=== PATIENT | male | born 1935 | race Caucasian/White ===

== ENCOUNTER 2019-03-26 09:18 | Inpatient (IN) ==
[2019-03-26] MEDS ORDERED: MOM Conc 10 ML UD.LIQ PO PRN (14:09)
[2019-03-26] MEDS ORDERED: [UNRECOGNIZED DRUG - OTHER] IV SCH (14:15)
[2019-03-26] MEDS ORDERED: VANCOMYCIN HCL IV SCH (14:15)
[2019-03-26] MEDS ORDERED: DEXTROSE 5% IV SCH (14:15)
[2019-03-26] MEDS: Ascorbic Acid 500 MG TABLET PO SCH (17:45)
[2019-03-26] MEDS: *HR* OxyCODONE Immed Rel 5 MG TABLET PO PRN ×2 (17:46→21:48)
[2019-03-26] MEDS: Furosemide 20 MG TABLET PO SCH (17:46)
[2019-03-26] MEDS ORDERED: *HR* Warfarin 3 MG TABLET PO SCH (18:00)
[2019-03-26] MEDS: Lactulose Oral Soln 20 GM/30 ML UDC PO SCH (21:47)
[2019-03-26] MEDS: traZODone 50 MG TABLET PO SCH (21:48)
[2019-03-26] MEDS: Melatonin 3 MG TABLET PO SCH (21:48)
[2019-03-27 05:47] LABS: Basophils % 0.2 %; Eosinophils # 0.5 K/mcL (0.0-0.6); Eosinophils % 4.3 %; Hematocrit 24.3 % (37.5-50.1); Hemoglobin 7.6 g/dL (12.9-16.9); Immature Granulocytes % 0.5 % (0-4); Lymphocytes # 1.8 K/mcL (0.6-4.6); Mean Corpuscular HGB Conc 31.3 g/dL (31.6-35.5); Mean Corpuscular Volume 89.7 fL (83.0-100.0); Mean Platelet Volume 9.4 fL (9.4-12.4); Monocytes # 0.7 K/mcL (0.0-1.3); Platelet Count 270 K/mcL (140-400); Red Blood Count 2.71 M/mcL (4.19-5.50); Red Cell Distribution Width 17.8 % (11.5-14.5); White Blood Count 12.1 K/mcL (4.3-11.1)
[2019-03-27 06:00] LABS: INR 1.6
[2019-03-27 06:11] LABS: Alanine Aminotransferase 4 Units/L (7-52); Albumin 2.6 g/dL (3.5-5.7); Alkaline Phosphatase 86 Units/L (34-104); Aspartate Amino Transferase 9 Units/L (13-39); BUN/Creatinine Ratio 18 (6-26); Bilirubin,Total 0.4 mg/dL (0.3-1.0); Blood Urea Nitrogen 21 mg/dL (8-23); Calcium 8.1 mg/dL (8.6-10.3); Carbon Dioxide 28 mEq/L (23-29); Chloride 102 mEq/L (98-107); Globulin 2.5 g/dL (2.4-3.5); Glucose 105 mg/dL (70-105); Osmolality,Calculated 287 (280-300); Potassium 3.3 mEq/L (3.5-5.1); Sodium 137 mEq/L (136-145); Total Protein 5.1 g/dL (6.4-8.9); eGFR For African Americans > 60 (> 60); eGFR For Non-African Americans 60 (> 60)
[2019-03-27] MEDS: Aspirin Enteric Coated 81 MG Tablet PO SCH (10:06)
[2019-03-27] MEDS: Verapamil ER (24 HR) 240 MG TABLET.ER PO SCH (10:06)
[2019-03-27] MEDS: Multivit/Ca/Min/Fe/FA 1 TAB TABLET PO SCH (10:07)
[2019-03-27] MEDS: Isosorbide MONOnitrate (24 HR) 30 MG TAB.ER.24H PO SCH (10:07)
[2019-03-27] MEDS: Ascorbic Acid 500 MG TABLET PO SCH ×2 (10:07→17:23)
[2019-03-27] MEDS: FATTY ACIDS PO SCH (10:08)
[2019-03-27] MEDS: Lactulose Oral Soln 20 GM/30 ML UDC PO SCH ×2 (10:08→22:03)
[2019-03-27] MEDS: OMEGA PO SCH (10:08)
[2019-03-27] MEDS: FISH OIL PO SCH (10:08)
[2019-03-27] MEDS: Furosemide 20 MG TABLET PO SCH ×2 (10:13→17:23)
[2019-03-27] MEDS: *HR* OxyCODONE Immed Rel 5 MG TABLET PO PRN ×2 (10:27→22:05)
[2019-03-27 13:13] LABS: Bilirubin,Urine Negative (Negative); Blood,Urine Large (Negative); Clarity,Urine Slightly Cloudy (Clear); Color,Urine Yellow (Yellow); Glucose,Urine (UA) Normal (Normal); Ketones,Urine Negative (Negative); Leukocyte Esterase,Urine Small (Negative); Nitrite,Urine Negative (Negative); Protein,Urine 100 mg/dL (Neg-Trace); Specific Gravity,Urine >= 1.030 (1.010-1.025); Urobilinogen,Urine Normal (Normal)
[2019-03-27 13:19] LABS: RBC,Urine TNTC per hpf (0-3); Squamous Epithelial Cell,Urine Moderate per lpf (None-Few)
[2019-03-27 13:20] LABS: Bacteria,Urine Many per hpf (None-Few)
[2019-03-27] MEDS ORDERED: *HR* Warfarin 4 MG TABLET PO ONE (18:00)
[2019-03-27] MEDS ORDERED: Warfarin perPT PO PRN (18:00)
[2019-03-27] MEDS: traZODone 50 MG TABLET PO SCH (22:03)
[2019-03-27] MEDS: Melatonin 3 MG TABLET PO SCH (22:03)
[2019-03-28 05:49] LABS: INR 1.6
[2019-03-28] MEDS: Ascorbic Acid 500 MG TABLET PO SCH ×2 (09:37→16:43)
[2019-03-28] MEDS: Multivit/Ca/Min/Fe/FA 1 TAB TABLET PO SCH (09:37)
[2019-03-28] MEDS: Isosorbide MONOnitrate (24 HR) 30 MG TAB.ER.24H PO SCH (09:37)
[2019-03-28] MEDS: Furosemide 20 MG TABLET PO SCH ×2 (09:37→16:43)
[2019-03-28] MEDS: Aspirin Enteric Coated 81 MG Tablet PO SCH (09:38)
[2019-03-28] MEDS: Verapamil ER (24 HR) 240 MG TABLET.ER PO SCH (09:38)
[2019-03-28] MEDS: FATTY ACIDS PO SCH (09:41)
[2019-03-28] MEDS: FISH OIL PO SCH (09:41)
[2019-03-28] MEDS: OMEGA PO SCH (09:41)
[2019-03-28] MEDS: Lactulose Oral Soln 20 GM/30 ML UDC PO SCH (09:43)
[2019-03-28] MEDS ORDERED: Saliva Stimulant 100ml BOTTLE PO PRN (10:33)
[2019-03-28] MEDS ORDERED: Lactulose Oral Soln 20 GM/30 ML UDC PO PRN (10:36)
[2019-03-28] MEDS: *HR* OxyCODONE Immed Rel 5 MG TABLET PO PRN (16:43)
[2019-03-28] MEDS ORDERED: *HR* Warfarin 5 MG TABLET PO ONE (18:00)
[2019-03-28] MEDS ORDERED: *HR* Enoxaparin 100 MG/ML SYRINGE SQ SCH (18:00)
[2019-03-28] MEDS: Melatonin 3 MG TABLET PO SCH (21:22)
[2019-03-28] MEDS: traZODone 50 MG TABLET PO SCH (21:22)
[2019-03-29 06:36] LABS: Basophils % 0.3 %; Eosinophils # 0.4 K/mcL (0.0-0.6); Eosinophils % 3.8 %; Hematocrit 23.9 % (37.5-50.1); Hemoglobin 7.5 g/dL (12.9-16.9); Immature Granulocytes % 0.6 % (0-4); Lymphocytes # 1.3 K/mcL (0.6-4.6); Lymphocytes % 13.2 %; Mean Corpuscular HGB Conc 31.4 g/dL (31.6-35.5); Mean Corpuscular Hemoglobin 27.7 pg (28.0-33.3); Mean Corpuscular Volume 88.2 fL (83.0-100.0); Mean Platelet Volume 9.9 fL (9.4-12.4); Monocytes # 0.7 K/mcL (0.0-1.3); Monocytes % 6.9 %; Neutrophils # 7.6 K/mcL (1.6-8.9); Platelet Count 283 K/mcL (140-400); Red Blood Count 2.71 M/mcL (4.19-5.50); Red Cell Distribution Width 17.7 % (11.5-14.5); Segmented Neutrophils % 75.2 %; White Blood Count 10.1 K/mcL (4.3-11.1)
[2019-03-29 06:38] LABS: INR 1.8; Prothrombin Time 20.7 Seconds (9.4-12.1)
[2019-03-29 06:51] LABS: BUN/Creatinine Ratio 19 (6-26); Blood Urea Nitrogen 18 mg/dL (8-23); Carbon Dioxide 28 mEq/L (23-29); Chloride 104 mEq/L (98-107); Glucose 111 mg/dL (70-105); Osmolality,Calculated 287 (280-300); Potassium 3.2 mEq/L (3.5-5.1); Sodium 137 mEq/L (136-145); eGFR For African Americans > 60 (> 60); eGFR For Non-African Americans > 60 (> 60)
[2019-03-29] MEDS: Ascorbic Acid 500 MG TABLET PO SCH ×2 (09:54→18:15)
[2019-03-29] MEDS: Multivit/Ca/Min/Fe/FA 1 TAB TABLET PO SCH (09:54)
[2019-03-29] MEDS: Aspirin Enteric Coated 81 MG Tablet PO SCH (09:54)
[2019-03-29] MEDS: Verapamil ER (24 HR) 120 MG TABLET.ER PO SCH (09:54)
[2019-03-29] MEDS: Furosemide 20 MG TABLET PO SCH ×2 (09:55→18:15)
[2019-03-29] MEDS: Isosorbide MONOnitrate (24 HR) 30 MG TAB.ER.24H PO SCH (09:56)
[2019-03-29] MEDS: *HR* OxyCODONE Immed Rel 5 MG TABLET PO PRN ×2 (10:15→18:20)
[2019-03-29] MEDS: OMEGA PO SCH (10:19)
[2019-03-29] MEDS: FISH OIL PO SCH (10:19)
[2019-03-29] MEDS: FATTY ACIDS PO SCH (10:19)
[2019-03-29] MEDS ORDERED: *HR* Warfarin 4 MG TABLET PO ONE (18:00)
[2019-03-29] MEDS: traZODone 50 MG TABLET PO SCH (21:43)
[2019-03-29] MEDS: Melatonin 3 MG TABLET PO SCH (21:43)
[2019-03-30 05:06] LABS: Basophils % 0.4 %; Eosinophils # 0.3 K/mcL (0.0-0.6); Eosinophils % 2.9 %; Hematocrit 24.5 % (37.5-50.1); Hemoglobin 7.6 g/dL (12.9-16.9); Immature Granulocytes % 0.5 % (0-4); Lymphocytes # 1.6 K/mcL (0.6-4.6); Lymphocytes % 14.5 %; Mean Corpuscular Hemoglobin 27.7 pg (28.0-33.3); Mean Corpuscular Volume 89.4 fL (83.0-100.0); Monocytes # 0.8 K/mcL (0.0-1.3); Monocytes % 7.4 %; Neutrophils # 8.2 K/mcL (1.6-8.9); Platelet Count 310 K/mcL (140-400); Red Blood Count 2.74 M/mcL (4.19-5.50); Red Cell Distribution Width 17.7 % (11.5-14.5); Segmented Neutrophils % 74.3 %
[2019-03-30 05:13] LABS: Prothrombin Time 22.7 Seconds (9.4-12.1)
[2019-03-30 05:26] LABS: BUN/Creatinine Ratio 16 (6-26); Blood Urea Nitrogen 16 mg/dL (8-23); Calcium 8.1 mg/dL (8.6-10.3); Carbon Dioxide 27 mEq/L (23-29); Chloride 104 mEq/L (98-107); Glucose 109 mg/dL (70-105); Osmolality,Calculated 288 (280-300); Potassium 3.2 mEq/L (3.5-5.1); Sodium 138 mEq/L (136-145); eGFR For African Americans > 60 (> 60); eGFR For Non-African Americans > 60 (> 60)
[2019-03-30] MEDS: Aspirin Enteric Coated 81 MG Tablet PO SCH (08:53)
[2019-03-30] MEDS: Verapamil ER (24 HR) 120 MG TABLET.ER PO SCH (08:53)
[2019-03-30] MEDS: Furosemide 20 MG TABLET PO SCH ×2 (08:53→18:02)
[2019-03-30] MEDS: Isosorbide MONOnitrate (24 HR) 30 MG TAB.ER.24H PO SCH (08:53)
[2019-03-30] MEDS: Multivit/Ca/Min/Fe/FA 1 TAB TABLET PO SCH (08:53)
[2019-03-30] MEDS: Ascorbic Acid 500 MG TABLET PO SCH ×2 (08:54→18:01)
[2019-03-30] MEDS: *HR* OxyCODONE Immed Rel 5 MG TABLET PO PRN ×2 (08:54→18:01)
[2019-03-30] MEDS: FISH OIL PO SCH (11:51)
[2019-03-30] MEDS: OMEGA PO SCH (11:51)
[2019-03-30] MEDS: FATTY ACIDS PO SCH (11:51)
[2019-03-30] MEDS ORDERED: *HR* Warfarin 4 MG TABLET PO ONE (18:00)
[2019-03-30] MEDS: traZODone 50 MG TABLET PO SCH (21:33)
[2019-03-30] MEDS: Melatonin 3 MG TABLET PO SCH (21:33)
[2019-03-31 03:01] LABS: INR 1.9; Prothrombin Time 22.1 Seconds (9.4-12.1)
[2019-03-31] MEDS: Furosemide 20 MG TABLET PO SCH ×2 (09:03→18:18)
[2019-03-31] MEDS: Ascorbic Acid 500 MG TABLET PO SCH ×2 (09:03→18:18)
[2019-03-31] MEDS: Isosorbide MONOnitrate (24 HR) 30 MG TAB.ER.24H PO SCH (09:03)
[2019-03-31] MEDS: Multivit/Ca/Min/Fe/FA 1 TAB TABLET PO SCH (09:03)
[2019-03-31] MEDS: *HR* OxyCODONE Immed Rel 5 MG TABLET PO PRN ×2 (09:03→18:18)
[2019-03-31] MEDS: Aspirin Enteric Coated 81 MG Tablet PO SCH (09:03)
[2019-03-31] MEDS: Verapamil ER (24 HR) 120 MG TABLET.ER PO SCH (09:03)
[2019-03-31] MEDS: OMEGA PO SCH (09:04)
[2019-03-31] MEDS: FISH OIL PO SCH (09:04)
[2019-03-31] MEDS: FATTY ACIDS PO SCH (09:04)
[2019-03-31] MEDS ORDERED: *HR* Warfarin 5 MG TABLET PO ONE (18:00)
[2019-03-31] MEDS: Melatonin 3 MG TABLET PO SCH (19:50)
[2019-03-31] MEDS: traZODone 50 MG TABLET PO SCH (19:50)
[2019-04-01 05:53] LABS: Hematocrit 26.2 % (37.5-50.1); Hemoglobin 8.1 g/dL (12.9-16.9); Mean Corpuscular HGB Conc 30.9 g/dL (31.6-35.5); Mean Corpuscular Hemoglobin 27.5 pg (28.0-33.3); Mean Corpuscular Volume 88.8 fL (83.0-100.0); Mean Platelet Volume 9.7 fL (9.4-12.4); Platelet Count 324 K/mcL (140-400); Red Blood Count 2.95 M/mcL (4.19-5.50); Red Cell Distribution Width 17.5 % (11.5-14.5)
[2019-04-01 05:57] LABS: INR 2.2; Prothrombin Time 25.3 Seconds (9.4-12.1)
[2019-04-01 06:07] LABS: BUN/Creatinine Ratio 15 (6-26); Blood Urea Nitrogen 16 mg/dL (8-23); Calcium 8.3 mg/dL (8.6-10.3); Carbon Dioxide 29 mEq/L (23-29); Chloride 102 mEq/L (98-107); Glucose 100 mg/dL (70-105); Magnesium 1.9 mg/dL (1.6-2.6); Osmolality,Calculated 283 (280-300); Potassium 4.2 mEq/L (3.5-5.1); Sodium 136 mEq/L (136-145); eGFR For African Americans > 60 (> 60); eGFR For Non-African Americans > 60 (> 60)
[2019-04-01] MEDS: Verapamil ER (24 HR) 120 MG TABLET.ER PO SCH (08:53)
[2019-04-01] MEDS: Aspirin Enteric Coated 81 MG Tablet PO SCH (08:54)
[2019-04-01] MEDS: Isosorbide MONOnitrate (24 HR) 30 MG TAB.ER.24H PO SCH (08:54)
[2019-04-01] MEDS: Furosemide 20 MG TABLET PO SCH ×2 (08:54→17:57)
[2019-04-01] MEDS: Ascorbic Acid 500 MG TABLET PO SCH ×2 (08:54→17:57)
[2019-04-01] MEDS: OMEGA PO SCH (08:55)
[2019-04-01] MEDS: Multivit/Ca/Min/Fe/FA 1 TAB TABLET PO SCH (08:55)
[2019-04-01] MEDS: FISH OIL PO SCH (08:55)
[2019-04-01] MEDS: FATTY ACIDS PO SCH (08:55)
[2019-04-01] MEDS ORDERED: Furosemide 20 MG TABLET PO ONE (17:00)
[2019-04-01] MEDS ORDERED: *HR* Warfarin 5 MG TABLET PO ONE (18:00)
[2019-04-01] MEDS: *HR* OxyCODONE Immed Rel 5 MG TABLET PO PRN (18:33)
[2019-04-01] MEDS: traZODone 50 MG TABLET PO SCH (22:30)
[2019-04-01] MEDS: Melatonin 3 MG TABLET PO SCH (22:30)
[2019-04-02 05:40] LABS: INR 2.6; Prothrombin Time 29.3 Seconds (9.4-12.1)
[2019-04-02 05:50] LABS: eGFR For African Americans > 60 (> 60); eGFR For Non-African Americans 59 (> 60)
[2019-04-02] MEDS: *HR* OxyCODONE Immed Rel 5 MG TABLET PO PRN ×2 (06:32→17:00)
[2019-04-02] MEDS: Furosemide 20 MG TABLET PO SCH ×2 (08:43→17:01)
[2019-04-02] MEDS: Multivit/Ca/Min/Fe/FA 1 TAB TABLET PO SCH (08:43)
[2019-04-02] MEDS: Aspirin Enteric Coated 81 MG Tablet PO SCH (08:43)
[2019-04-02] MEDS: Verapamil ER (24 HR) 120 MG TABLET.ER PO SCH (08:43)
[2019-04-02] MEDS: FISH OIL PO SCH (08:44)
[2019-04-02] MEDS: OMEGA PO SCH (08:44)
[2019-04-02] MEDS: Isosorbide MONOnitrate (24 HR) 30 MG TAB.ER.24H PO SCH (08:44)
[2019-04-02] MEDS: Ascorbic Acid 500 MG TABLET PO SCH ×2 (08:44→17:01)
[2019-04-02] MEDS: FATTY ACIDS PO SCH (08:44)
[2019-04-02] MEDS: rifAMPin 150 MG CAPSULE PO SCH (17:00)
[2019-04-02] MEDS ORDERED: *HR* Warfarin 2.5 MG TABLET PO ONE (18:00)
[2019-04-02] MEDS: Melatonin 3 MG TABLET PO SCH (20:07)
[2019-04-02] MEDS: traZODone 50 MG TABLET PO SCH (20:08)
[2019-04-03 06:17] LABS: Basophils # 0.1 K/mcL (0.0-0.2); Basophils % 0.5 %; Eosinophils # 0.3 K/mcL (0.0-0.6); Eosinophils % 3.4 %; Hematocrit 26.8 % (37.5-50.1); Hemoglobin 8.4 g/dL (12.9-16.9); Immature Granulocytes % 0.5 % (0-4); Lymphocytes # 1.4 K/mcL (0.6-4.6); Lymphocytes % 14.8 %; Mean Corpuscular HGB Conc 31.3 g/dL (31.6-35.5); Mean Corpuscular Hemoglobin 27.5 pg (28.0-33.3); Mean Corpuscular Volume 87.9 fL (83.0-100.0); Mean Platelet Volume 9.6 fL (9.4-12.4); Monocytes # 0.6 K/mcL (0.0-1.3); Monocytes % 6.7 %; Neutrophils # 7.1 K/mcL (1.6-8.9); Platelet Count 341 K/mcL (140-400); Red Blood Count 3.05 M/mcL (4.19-5.50); Red Cell Distribution Width 17.4 % (11.5-14.5); Segmented Neutrophils % 74.1 %; White Blood Count 9.5 K/mcL (4.3-11.1)
[2019-04-03] MEDS: rifAMPin 150 MG CAPSULE PO SCH ×3 (06:23→17:52)
[2019-04-03] MEDS: Ondansetron ODT 4 MG TAB.RAPDIS SL PRN (06:23)
[2019-04-03] MEDS: *HR* OxyCODONE Immed Rel 5 MG TABLET PO PRN ×2 (06:23→11:50)
[2019-04-03 06:24] LABS: INR 2.8; Prothrombin Time 31.3 Seconds (9.4-12.1)
[2019-04-03 06:32] LABS: BUN/Creatinine Ratio 14 (6-26); Blood Urea Nitrogen 16 mg/dL (8-23); Calcium 8.2 mg/dL (8.6-10.3); Carbon Dioxide 28 mEq/L (23-29); Chloride 99 mEq/L (98-107); Glucose 107 mg/dL (70-105); Osmolality,Calculated 276 (280-300); Potassium 3.5 mEq/L (3.5-5.1); Sodium 132 mEq/L (136-145); eGFR For African Americans > 60 (> 60); eGFR For Non-African Americans > 60 (> 60)
[2019-04-03] MEDS: OMEGA PO SCH (08:22)
[2019-04-03] MEDS: FISH OIL PO SCH (08:22)
[2019-04-03] MEDS: FATTY ACIDS PO SCH (08:22)
[2019-04-03] MEDS: Verapamil ER (24 HR) 120 MG TABLET.ER PO SCH (08:27)
[2019-04-03] MEDS: Ascorbic Acid 500 MG TABLET PO SCH ×2 (08:28→18:03)
[2019-04-03] MEDS: Aspirin Enteric Coated 81 MG Tablet PO SCH (08:28)
[2019-04-03] MEDS: Furosemide 20 MG TABLET PO SCH ×2 (08:28→18:21)
[2019-04-03] MEDS: Isosorbide MONOnitrate (24 HR) 30 MG TAB.ER.24H PO SCH (08:28)
[2019-04-03] MEDS: Multivit/Ca/Min/Fe/FA 1 TAB TABLET PO SCH (08:28)
[2019-04-03 09:00] LABS: C-Reactive Protein 71 mg/L (Less than 10)
[2019-04-03] MEDS ORDERED: *HR* Warfarin 2.5 MG TABLET PO ONE (18:00)
[2019-04-03] MEDS: Melatonin 3 MG TABLET PO SCH (21:28)
[2019-04-03] MEDS: traZODone 50 MG TABLET PO SCH (21:28)
[2019-04-04] MEDS: *HR* OxyCODONE Immed Rel 5 MG TABLET PO PRN ×3 (00:34→15:05)
[2019-04-04 00:58] LABS: Bilirubin,Urine Small (Negative); Blood,Urine Large (Negative); Clarity,Urine Cloudy (Clear); Color,Urine Red (Yellow); Glucose,Urine (UA) Normal (Normal); Ketones,Urine Negative (Negative); Leukocyte Esterase,Urine Large (Negative); Nitrite,Urine Negative (Negative); Protein,Urine 100 mg/dL (Neg-Trace); Specific Gravity,Urine 1.015 (1.010-1.025); Urobilinogen,Urine Normal (Normal)
[2019-04-04 01:09] LABS: Bacteria,Urine Present per hpf (None-Few); RBC,Urine TNTC per hpf (0-3); WBC,Urine Present per hpf (0-3); Yeast,Urine Present per hpf (None Seen)
[2019-04-04 04:17] LABS: Hematocrit 27.6 % (37.5-50.1); Hemoglobin 8.6 g/dL (12.9-16.9); Mean Corpuscular HGB Conc 31.2 g/dL (31.6-35.5); Mean Corpuscular Hemoglobin 27.5 pg (28.0-33.3); Mean Corpuscular Volume 88.2 fL (83.0-100.0); Mean Platelet Volume 9.6 fL (9.4-12.4); Platelet Count 360 K/mcL (140-400); Red Blood Count 3.13 M/mcL (4.19-5.50); Red Cell Distribution Width 17.4 % (11.5-14.5); White Blood Count 9.4 K/mcL (4.3-11.1)
[2019-04-04 04:22] LABS: INR 2.9; Prothrombin Time 33.1 Seconds (9.4-12.1)
[2019-04-04 04:59] LABS: Alanine Aminotransferase 5 Units/L (7-52); Albumin 2.9 g/dL (3.5-5.7); Alkaline Phosphatase 106 Units/L (34-104); Aspartate Amino Transferase 11 Units/L (13-39); BUN/Creatinine Ratio 14 (6-26); Bilirubin,Total 0.6 mg/dL (0.3-1.0); Blood Urea Nitrogen 17 mg/dL (8-23); Calcium 8.3 mg/dL (8.6-10.3); Carbon Dioxide 28 mEq/L (23-29); Chloride 102 mEq/L (98-107); Glucose 106 mg/dL (70-105); Magnesium 1.8 mg/dL (1.6-2.6); Osmolality,Calculated 286 (280-300); Potassium 3.8 mEq/L (3.5-5.1); Sodium 137 mEq/L (136-145); Total Protein 5.9 g/dL (6.4-8.9); eGFR For African Americans > 60 (> 60); eGFR For Non-African Americans 57 (> 60)
[2019-04-04] MEDS: Verapamil ER (24 HR) 120 MG TABLET.ER PO SCH (07:49)
[2019-04-04] MEDS: Isosorbide MONOnitrate (24 HR) 30 MG TAB.ER.24H PO SCH (07:49)
[2019-04-04] MEDS: Ascorbic Acid 500 MG TABLET PO SCH ×2 (07:50→18:55)
[2019-04-04] MEDS: Multivit/Ca/Min/Fe/FA 1 TAB TABLET PO SCH (07:50)
[2019-04-04] MEDS: Furosemide 20 MG TABLET PO SCH ×2 (07:50→18:55)
[2019-04-04] MEDS: Aspirin Enteric Coated 81 MG Tablet PO SCH (07:51)
[2019-04-04] MEDS ORDERED: *HR* Warfarin 2.5 MG TABLET PO ONE (18:00)
[2019-04-04] MEDS: OMEGA PO SCH (18:53)
[2019-04-04] MEDS: FATTY ACIDS PO SCH (18:53)
[2019-04-04] MEDS: FISH OIL PO SCH (18:53)
[2019-04-04] MEDS: rifAMPin 150 MG CAPSULE PO SCH (18:55)
[2019-04-04] MEDS: Melatonin 3 MG TABLET PO SCH (21:31)
[2019-04-04] MEDS: traZODone 50 MG TABLET PO SCH (21:31)
[2019-04-05] MEDS: *HR* OxyCODONE Immed Rel 5 MG TABLET PO PRN ×3 (04:26→22:30)
[2019-04-05] MEDS: rifAMPin 150 MG CAPSULE PO SCH ×3 (04:26→17:08)
[2019-04-05 06:12] LABS: INR 2.5; Prothrombin Time 28.1 Seconds (9.4-12.1)
[2019-04-05 06:22] LABS: eGFR For African Americans > 60 (> 60); eGFR For Non-African Americans 57 (> 60)
[2019-04-05] MEDS: Multivit/Ca/Min/Fe/FA 1 TAB TABLET PO SCH (08:44)
[2019-04-05] MEDS: Furosemide 20 MG TABLET PO SCH ×2 (08:44→17:08)
[2019-04-05] MEDS: Verapamil ER (24 HR) 120 MG TABLET.ER PO SCH (08:44)
[2019-04-05] MEDS: Isosorbide MONOnitrate (24 HR) 30 MG TAB.ER.24H PO SCH (08:44)
[2019-04-05] MEDS: Aspirin Enteric Coated 81 MG Tablet PO SCH (08:45)
[2019-04-05] MEDS: Ascorbic Acid 500 MG TABLET PO SCH ×2 (08:45→17:08)
[2019-04-05] MEDS: OMEGA PO SCH (08:54)
[2019-04-05] MEDS: FISH OIL PO SCH (08:54)
[2019-04-05] MEDS: FATTY ACIDS PO SCH (08:54)
[2019-04-05] MEDS ORDERED: *HR* Warfarin 2.5 MG TABLET PO ONE (18:00)
[2019-04-05] MEDS: Melatonin 3 MG TABLET PO SCH (22:30)
[2019-04-05] MEDS: traZODone 50 MG TABLET PO SCH (22:30)
[2019-04-06 05:40] LABS: Basophils # 0.1 K/mcL (0.0-0.2); Basophils % 0.6 %; Eosinophils # 0.3 K/mcL (0.0-0.6); Eosinophils % 3.3 %; Hematocrit 26.2 % (37.5-50.1); Hemoglobin 8.2 g/dL (12.9-16.9); Immature Granulocytes % 0.4 % (0-4); Lymphocytes % 19.5 %; Mean Corpuscular HGB Conc 31.3 g/dL (31.6-35.5); Mean Corpuscular Volume 86.2 fL (83.0-100.0); Mean Platelet Volume 9.7 fL (9.4-12.4); Monocytes # 0.7 K/mcL (0.0-1.3); Monocytes % 7.2 %; Platelet Count 350 K/mcL (140-400); Red Blood Count 3.04 M/mcL (4.19-5.50); Red Cell Distribution Width 17.2 % (11.5-14.5); White Blood Count 10.1 K/mcL (4.3-11.1)
[2019-04-06 05:47] LABS: INR 2.1; Prothrombin Time 23.6 Seconds (9.4-12.1)
[2019-04-06 06:01] LABS: eGFR For African Americans > 60 (> 60); eGFR For Non-African Americans 56 (> 60)
[2019-04-06] MEDS: Verapamil ER (24 HR) 120 MG TABLET.ER PO SCH (07:58)
[2019-04-06] MEDS: Furosemide 20 MG TABLET PO SCH ×2 (07:59→17:07)
[2019-04-06] MEDS: *HR* OxyCODONE Immed Rel 5 MG TABLET PO PRN ×2 (07:59→23:30)
[2019-04-06] MEDS: Ascorbic Acid 500 MG TABLET PO SCH ×2 (08:00→17:07)
[2019-04-06] MEDS: Isosorbide MONOnitrate (24 HR) 30 MG TAB.ER.24H PO SCH (08:00)
[2019-04-06] MEDS: rifAMPin 150 MG CAPSULE PO SCH ×3 (08:00→17:06)
[2019-04-06] MEDS: Multivit/Ca/Min/Fe/FA 1 TAB TABLET PO SCH (08:00)
[2019-04-06] MEDS: Aspirin Enteric Coated 81 MG Tablet PO SCH (08:00)
[2019-04-06] MEDS: FATTY ACIDS PO SCH (08:01)
[2019-04-06] MEDS: OMEGA PO SCH (08:01)
[2019-04-06] MEDS: FISH OIL PO SCH (08:01)
[2019-04-06] MEDS ORDERED: *HR* Warfarin 5 MG TABLET PO ONE (18:00)
[2019-04-06] MEDS: Melatonin 3 MG TABLET PO SCH (21:15)
[2019-04-06] MEDS: traZODone 50 MG TABLET PO SCH (21:16)
[2019-04-07] MEDS: *HR* OxyCODONE Immed Rel 5 MG TABLET PO PRN ×2 (06:31→21:25)
[2019-04-07] MEDS: rifAMPin 150 MG CAPSULE PO SCH ×3 (06:31→18:15)
[2019-04-07 08:17] LABS: INR 1.9; Prothrombin Time 21.6 Seconds (9.4-12.1)
[2019-04-07 08:29] LABS: eGFR For African Americans > 60 (> 60); eGFR For Non-African Americans 57 (> 60)
[2019-04-07] MEDS: Multivit/Ca/Min/Fe/FA 1 TAB TABLET PO SCH (08:30)
[2019-04-07] MEDS: Furosemide 20 MG TABLET PO SCH ×2 (08:30→18:15)
[2019-04-07] MEDS: Verapamil ER (24 HR) 120 MG TABLET.ER PO SCH (08:30)
[2019-04-07] MEDS: Ascorbic Acid 500 MG TABLET PO SCH ×2 (08:30→18:15)
[2019-04-07] MEDS: Isosorbide MONOnitrate (24 HR) 30 MG TAB.ER.24H PO SCH (08:30)
[2019-04-07] MEDS: FATTY ACIDS PO SCH (08:31)
[2019-04-07] MEDS: Aspirin Enteric Coated 81 MG Tablet PO SCH (08:31)
[2019-04-07] MEDS: OMEGA PO SCH (08:31)
[2019-04-07] MEDS: FISH OIL PO SCH (08:31)
[2019-04-07] MEDS ORDERED: *HR* Warfarin 5 MG TABLET PO ONE (18:00)
[2019-04-07] MEDS: Fluconazole 100 MG TABLET PO SCH (18:16)
[2019-04-07] MEDS: Melatonin 3 MG TABLET PO SCH (21:25)
[2019-04-07] MEDS: traZODone 50 MG TABLET PO SCH (21:25)
[2019-04-08] MEDS: *HR* OxyCODONE Immed Rel 5 MG TABLET PO PRN ×3 (04:27→13:42)
[2019-04-08 05:26] LABS: INR 1.8
[2019-04-08 05:27] LABS: Basophils # 0.1 K/mcL (0.0-0.2); Basophils % 0.7 %; Eosinophils # 0.3 K/mcL (0.0-0.6); Eosinophils % 3.1 %; Hematocrit 29.2 % (37.5-50.1); Immature Granulocytes % 0.2 % (0-4); Lymphocytes % 22.2 %; Mean Corpuscular HGB Conc 30.8 g/dL (31.6-35.5); Mean Corpuscular Hemoglobin 26.8 pg (28.0-33.3); Mean Corpuscular Volume 86.9 fL (83.0-100.0); Mean Platelet Volume 9.9 fL (9.4-12.4); Monocytes # 0.7 K/mcL (0.0-1.3); Monocytes % 7.7 %; Neutrophils # 5.9 K/mcL (1.6-8.9); Platelet Count 377 K/mcL (140-400); Red Blood Count 3.36 M/mcL (4.19-5.50); Red Cell Distribution Width 17.1 % (11.5-14.5); Segmented Neutrophils % 66.1 %; White Blood Count 8.9 K/mcL (4.3-11.1)
[2019-04-08 05:37] LABS: BUN/Creatinine Ratio 14 (6-26); Blood Urea Nitrogen 17 mg/dL (8-23); Calcium 8.5 mg/dL (8.6-10.3); Carbon Dioxide 29 mEq/L (23-29); Chloride 100 mEq/L (98-107); Glucose 97 mg/dL (70-105); Osmolality,Calculated 283 (280-300); Potassium 3.6 mEq/L (3.5-5.1); Sodium 136 mEq/L (136-145); eGFR For African Americans > 60 (> 60); eGFR For Non-African Americans 56 (> 60)
[2019-04-08 05:52] LABS: Albumin/Globulin Ratio 0.9 (1.1-2.2); Bilirubin,Direct 0.3 mg/dL (0.0-0.2); Bilirubin,Indirect 0.3 mg/dL (0.0-1.0); Bilirubin,Total 0.6 mg/dL (0.3-1.0); Globulin 3.2 g/dL (2.4-3.5); Total Protein 6.2 g/dL (6.4-8.9)
[2019-04-08] MEDS: rifAMPin 150 MG CAPSULE PO SCH ×3 (06:57→17:07)
[2019-04-08 09:14] LABS: C-Reactive Protein 57 mg/L (Less than 10)
[2019-04-08] MEDS: Isosorbide MONOnitrate (24 HR) 30 MG TAB.ER.24H PO SCH (09:22)
[2019-04-08] MEDS: Verapamil ER (24 HR) 120 MG TABLET.ER PO SCH (09:22)
[2019-04-08] MEDS: Fluconazole 100 MG TABLET PO SCH (09:23)
[2019-04-08] MEDS: Multivit/Ca/Min/Fe/FA 1 TAB TABLET PO SCH (09:23)
[2019-04-08] MEDS: Furosemide 20 MG TABLET PO SCH ×2 (09:23→17:07)
[2019-04-08] MEDS: Ascorbic Acid 500 MG TABLET PO SCH ×2 (09:23→17:07)
[2019-04-08] MEDS: Aspirin Enteric Coated 81 MG Tablet PO SCH (09:23)
[2019-04-08] MEDS: FISH OIL PO SCH (09:24)
[2019-04-08] MEDS: OMEGA PO SCH (09:24)
[2019-04-08] MEDS: FATTY ACIDS PO SCH (09:24)
[2019-04-08] MEDS ORDERED: *HR* Warfarin 3 MG TABLET PO ONE (18:00)
[2019-04-08] MEDS: traZODone 50 MG TABLET PO SCH (22:02)
[2019-04-08] MEDS: Melatonin 3 MG TABLET PO SCH (22:02)
[2019-04-09 06:08] LABS: INR 2.1; Prothrombin Time 24.3 Seconds (9.4-12.1)
[2019-04-09] MEDS: Verapamil ER (24 HR) 120 MG TABLET.ER PO SCH (08:49)
[2019-04-09] MEDS: Ascorbic Acid 500 MG TABLET PO SCH ×2 (08:49→17:23)
[2019-04-09] MEDS: *HR* OxyCODONE Immed Rel 5 MG TABLET PO PRN (08:49)
[2019-04-09] MEDS: Multivit/Ca/Min/Fe/FA 1 TAB TABLET PO SCH (08:49)
[2019-04-09] MEDS: Aspirin Enteric Coated 81 MG Tablet PO SCH (08:49)
[2019-04-09] MEDS: rifAMPin 150 MG CAPSULE PO SCH ×3 (08:49→17:23)
[2019-04-09] MEDS: Fluconazole 100 MG TABLET PO SCH (08:49)
[2019-04-09] MEDS: Isosorbide MONOnitrate (24 HR) 30 MG TAB.ER.24H PO SCH (08:50)
[2019-04-09] MEDS: Furosemide 20 MG TABLET PO SCH ×2 (08:50→17:23)
[2019-04-09] MEDS: OMEGA PO SCH (08:50)
[2019-04-09] MEDS: FISH OIL PO SCH (08:50)
[2019-04-09] MEDS: FATTY ACIDS PO SCH (08:50)
[2019-04-09] MEDS ORDERED: *HR* Warfarin 5 MG TABLET PO ONE (18:00)
[2019-04-09] MEDS: Melatonin 3 MG TABLET PO SCH (19:46)
[2019-04-09] MEDS: traZODone 50 MG TABLET PO SCH (19:46)
[2019-04-10] MEDS: Isosorbide MONOnitrate (24 HR) 30 MG TAB.ER.24H PO SCH (05:53)
[2019-04-10] MEDS: Aspirin Enteric Coated 81 MG Tablet PO SCH (05:53)
[2019-04-10] MEDS: Ascorbic Acid 500 MG TABLET PO SCH ×2 (05:53→17:55)
[2019-04-10] MEDS: rifAMPin 150 MG CAPSULE PO SCH ×3 (05:53→14:41)
[2019-04-10] MEDS: Fluconazole 100 MG TABLET PO SCH (05:53)
[2019-04-10] MEDS: Verapamil ER (24 HR) 120 MG TABLET.ER PO SCH (05:53)
[2019-04-10] MEDS: Furosemide 20 MG TABLET PO SCH ×2 (05:53→17:55)
[2019-04-10] MEDS: FISH OIL PO SCH (05:54)
[2019-04-10] MEDS: Multivit/Ca/Min/Fe/FA 1 TAB TABLET PO SCH (05:54)
[2019-04-10] MEDS: FATTY ACIDS PO SCH (05:54)
[2019-04-10] MEDS: OMEGA PO SCH (05:54)
[2019-04-10 05:59] LABS: INR 2.2; Prothrombin Time 25.2 Seconds (9.4-12.1)
[2019-04-10 06:11] LABS: eGFR For African Americans > 60 (> 60); eGFR For Non-African Americans 56 (> 60)
[2019-04-10] MEDS: *HR* OxyCODONE Immed Rel 5 MG TABLET PO PRN ×2 (14:40→21:00)
[2019-04-10] MEDS ORDERED: *HR* Warfarin 5 MG TABLET PO ONE (18:00)
[2019-04-10] MEDS: traZODone 50 MG TABLET PO SCH (20:58)
[2019-04-10] MEDS: Melatonin 3 MG TABLET PO SCH (20:58)
[2019-04-11 05:50] LABS: INR 2.5; Prothrombin Time 28.2 Seconds (9.4-12.1)
[2019-04-11 06:01] LABS: eGFR For African Americans > 60 (> 60); eGFR For Non-African Americans 60 (> 60)
[2019-04-11] MEDS: Aspirin Enteric Coated 81 MG Tablet PO SCH (07:39)
[2019-04-11] MEDS: Fluconazole 100 MG TABLET PO SCH (07:40)
[2019-04-11] MEDS: rifAMPin 150 MG CAPSULE PO SCH ×3 (07:40→18:06)
[2019-04-11] MEDS: Isosorbide MONOnitrate (24 HR) 30 MG TAB.ER.24H PO SCH (07:40)
[2019-04-11] MEDS: Verapamil ER (24 HR) 120 MG TABLET.ER PO SCH (07:40)
[2019-04-11] MEDS: Multivit/Ca/Min/Fe/FA 1 TAB TABLET PO SCH (07:40)
[2019-04-11] MEDS: Furosemide 20 MG TABLET PO SCH ×2 (07:40→18:06)
[2019-04-11] MEDS: Ascorbic Acid 500 MG TABLET PO SCH ×2 (07:40→18:06)
[2019-04-11] MEDS: FATTY ACIDS PO SCH (10:04)
[2019-04-11] MEDS: FISH OIL PO SCH (10:04)
[2019-04-11] MEDS: OMEGA PO SCH (10:04)
[2019-04-11] MEDS: *HR* OxyCODONE Immed Rel 5 MG TABLET PO PRN ×2 (10:04→22:48)
[2019-04-11] MEDS ORDERED: *HR* Warfarin 4 MG TABLET PO ONE (18:00)
[2019-04-11] MEDS: Melatonin 3 MG TABLET PO SCH (22:46)
[2019-04-11] MEDS: traZODone 50 MG TABLET PO SCH (22:48)
[2019-04-12 06:02] LABS: INR 2.7; Prothrombin Time 30.5 Seconds (9.4-12.1)
[2019-04-12 06:12] LABS: eGFR For African Americans > 60 (> 60); eGFR For Non-African Americans 58 (> 60)
[2019-04-12] MEDS: Furosemide 20 MG TABLET PO SCH ×2 (09:37→17:37)
[2019-04-12] MEDS: Ascorbic Acid 500 MG TABLET PO SCH ×2 (09:37→17:37)
[2019-04-12] MEDS: Isosorbide MONOnitrate (24 HR) 30 MG TAB.ER.24H PO SCH (09:37)
[2019-04-12] MEDS: Fluconazole 100 MG TABLET PO SCH (09:37)
[2019-04-12] MEDS: Aspirin Enteric Coated 81 MG Tablet PO SCH (09:38)
[2019-04-12] MEDS: *HR* OxyCODONE Immed Rel 5 MG TABLET PO PRN ×2 (09:38→17:38)
[2019-04-12] MEDS: Multivit/Ca/Min/Fe/FA 1 TAB TABLET PO SCH (09:39)
[2019-04-12] MEDS: Verapamil ER (24 HR) 120 MG TABLET.ER PO SCH (09:39)
[2019-04-12] MEDS: rifAMPin 150 MG CAPSULE PO SCH ×3 (09:39→17:37)
[2019-04-12] MEDS: OMEGA PO SCH (09:40)
[2019-04-12] MEDS: FATTY ACIDS PO SCH (09:40)
[2019-04-12] MEDS: FISH OIL PO SCH (09:40)
[2019-04-12] MEDS ORDERED: *HR* Warfarin 2 MG TABLET PO ONE (18:00)
[2019-04-12] MEDS: Melatonin 3 MG TABLET PO SCH (20:17)
[2019-04-12] MEDS: traZODone 50 MG TABLET PO SCH (20:17)
[2019-04-13 05:50] LABS: INR 2.3; Prothrombin Time 25.8 Seconds (9.4-12.1)
[2019-04-13 05:57] LABS: Hematocrit 29.4 % (37.5-50.1); Hemoglobin 9.2 g/dL (12.9-16.9); Mean Corpuscular HGB Conc 31.3 g/dL (31.6-35.5); Mean Corpuscular Hemoglobin 27.1 pg (28.0-33.3); Mean Corpuscular Volume 86.5 fL (83.0-100.0); Mean Platelet Volume 10.4 fL (9.4-12.4); Platelet Count 347 K/mcL (140-400); Red Cell Distribution Width 17.4 % (11.5-14.5); White Blood Count 8.1 K/mcL (4.3-11.1)
[2019-04-13 06:12] LABS: Alanine Aminotransferase 6 Units/L (7-52); Albumin 3.1 g/dL (3.5-5.7); Alkaline Phosphatase 110 Units/L (34-104); Aspartate Amino Transferase 13 Units/L (13-39); BUN/Creatinine Ratio 17 (6-26); Bilirubin,Total 0.5 mg/dL (0.3-1.0); Blood Urea Nitrogen 20 mg/dL (8-23); Calcium 8.7 mg/dL (8.6-10.3); Carbon Dioxide 27 mEq/L (23-29); Chloride 101 mEq/L (98-107); Globulin 3.2 g/dL (2.4-3.5); Glucose 102 mg/dL (70-105); Magnesium 2.2 mg/dL (1.6-2.6); Osmolality,Calculated 283 (280-300); Potassium 3.9 mEq/L (3.5-5.1); Sodium 135 mEq/L (136-145); Total Protein 6.3 g/dL (6.4-8.9); eGFR For African Americans > 60 (> 60); eGFR For Non-African Americans 59 (> 60)
[2019-04-13] MEDS: Isosorbide MONOnitrate (24 HR) 30 MG TAB.ER.24H PO SCH (08:32)
[2019-04-13] MEDS: Aspirin Enteric Coated 81 MG Tablet PO SCH (08:32)
[2019-04-13] MEDS: Fluconazole 100 MG TABLET PO SCH (08:33)
[2019-04-13] MEDS: rifAMPin 150 MG CAPSULE PO SCH ×3 (08:33→17:25)
[2019-04-13] MEDS: Ascorbic Acid 500 MG TABLET PO SCH ×2 (08:33→17:25)
[2019-04-13] MEDS: Verapamil ER (24 HR) 120 MG TABLET.ER PO SCH (08:33)
[2019-04-13] MEDS: Furosemide 20 MG TABLET PO SCH ×2 (08:33→17:25)
[2019-04-13] MEDS: OMEGA PO SCH (08:34)
[2019-04-13] MEDS: Multivit/Ca/Min/Fe/FA 1 TAB TABLET PO SCH (08:34)
[2019-04-13] MEDS: FATTY ACIDS PO SCH (08:34)
[2019-04-13] MEDS: FISH OIL PO SCH (08:34)
[2019-04-13] MEDS: *HR* OxyCODONE Immed Rel 5 MG TABLET PO PRN ×2 (11:34→20:33)
[2019-04-13] MEDS ORDERED: *HR* Warfarin 4 MG TABLET PO ONE (18:00)
[2019-04-13] MEDS: traZODone 50 MG TABLET PO SCH (20:33)
[2019-04-13] MEDS: Melatonin 3 MG TABLET PO SCH (20:33)
[2019-04-14] MEDS: Isosorbide MONOnitrate (24 HR) 30 MG TAB.ER.24H PO SCH (09:18)
[2019-04-14] MEDS: rifAMPin 150 MG CAPSULE PO SCH ×3 (09:18→15:38)
[2019-04-14] MEDS: Verapamil ER (24 HR) 120 MG TABLET.ER PO SCH (09:18)
[2019-04-14] MEDS: Aspirin Enteric Coated 81 MG Tablet PO SCH (09:18)
[2019-04-14] MEDS: Ascorbic Acid 500 MG TABLET PO SCH ×2 (09:19→15:39)
[2019-04-14] MEDS: Fluconazole 100 MG TABLET PO SCH (09:19)
[2019-04-14] MEDS: Multivit/Ca/Min/Fe/FA 1 TAB TABLET PO SCH (09:19)
[2019-04-14] MEDS: Furosemide 20 MG TABLET PO SCH ×2 (09:19→15:38)
[2019-04-14] MEDS: FATTY ACIDS PO SCH (09:24)
[2019-04-14] MEDS: OMEGA PO SCH (09:24)
[2019-04-14] MEDS: FISH OIL PO SCH (09:24)
[2019-04-14 11:22] LABS: Prothrombin Time 22.7 Seconds (9.4-12.1)
[2019-04-14] MEDS: *HR* OxyCODONE Immed Rel 5 MG TABLET PO PRN ×2 (15:39→21:30)
[2019-04-14] MEDS ORDERED: *HR* Warfarin 3 MG TABLET PO ONE (18:00)
[2019-04-14] MEDS: traZODone 50 MG TABLET PO SCH (21:30)
[2019-04-14] MEDS: Melatonin 3 MG TABLET PO SCH (21:30)
[2019-04-14] MEDS: Ondansetron ODT 4 MG TAB.RAPDIS SL PRN (22:00)
[2019-04-15 05:35] LABS: Basophils # 0.1 K/mcL (0.0-0.2); Basophils % 0.8 %; Eosinophils # 0.4 K/mcL (0.0-0.6); Eosinophils % 4.3 %; Hematocrit 30.6 % (37.5-50.1); Hemoglobin 9.6 g/dL (12.9-16.9); Immature Granulocytes % 0.4 % (0-4); Lymphocytes # 1.8 K/mcL (0.6-4.6); Lymphocytes % 21.4 %; Mean Corpuscular HGB Conc 31.4 g/dL (31.6-35.5); Mean Platelet Volume 9.9 fL (9.4-12.4); Monocytes # 0.8 K/mcL (0.0-1.3); Monocytes % 9.3 %; Neutrophils # 5.4 K/mcL (1.6-8.9); Platelet Count 345 K/mcL (140-400); Red Blood Count 3.56 M/mcL (4.19-5.50); Red Cell Distribution Width 17.3 % (11.5-14.5); Segmented Neutrophils % 63.8 %; White Blood Count 8.4 K/mcL (4.3-11.1)
[2019-04-15 05:39] LABS: Prothrombin Time 22.2 Seconds (9.4-12.1)
[2019-04-15 05:50] LABS: BUN/Creatinine Ratio 17 (6-26); Blood Urea Nitrogen 22 mg/dL (8-23); Carbon Dioxide 27 mEq/L (23-29); Chloride 100 mEq/L (98-107); Glucose 102 mg/dL (70-105); Osmolality,Calculated 282 (280-300); Potassium 4.5 mEq/L (3.5-5.1); Sodium 134 mEq/L (136-145); eGFR For African Americans > 60 (> 60); eGFR For Non-African Americans 52 (> 60)
[2019-04-15 05:51] LABS: Albumin 3.3 g/dL (3.5-5.7); Bilirubin,Direct 0.2 mg/dL (0.0-0.2); Bilirubin,Indirect 0.2 mg/dL (0.0-1.0); Bilirubin,Total 0.4 mg/dL (0.3-1.0); Globulin 3.3 g/dL (2.4-3.5); Total Protein 6.6 g/dL (6.4-8.9)
[2019-04-15 09:01] LABS: C-Reactive Protein 53 mg/L (Less than 10)
[2019-04-15] MEDS: rifAMPin 150 MG CAPSULE PO SCH ×3 (09:34→17:37)
[2019-04-15] MEDS: Aspirin Enteric Coated 81 MG Tablet PO SCH (09:34)
[2019-04-15] MEDS: Verapamil ER (24 HR) 120 MG TABLET.ER PO SCH (09:34)
[2019-04-15] MEDS: Furosemide 20 MG TABLET PO SCH ×2 (09:35→17:37)
[2019-04-15] MEDS: *HR* OxyCODONE Immed Rel 5 MG TABLET PO PRN ×2 (09:35→21:43)
[2019-04-15] MEDS: Ascorbic Acid 500 MG TABLET PO SCH ×2 (09:35→17:37)
[2019-04-15] MEDS: OMEGA PO SCH (09:36)
[2019-04-15] MEDS: FATTY ACIDS PO SCH (09:36)
[2019-04-15] MEDS: Isosorbide MONOnitrate (24 HR) 30 MG TAB.ER.24H PO SCH (09:36)
[2019-04-15] MEDS: FISH OIL PO SCH (09:36)
[2019-04-15] MEDS: Multivit/Ca/Min/Fe/FA 1 TAB TABLET PO SCH (09:36)
[2019-04-15] MEDS ORDERED: *HR* Warfarin 5 MG TABLET PO ONE (18:00)
[2019-04-15] MEDS: traZODone 50 MG TABLET PO SCH (21:43)
[2019-04-15] MEDS: Melatonin 3 MG TABLET PO SCH (21:43)
[2019-04-16 05:48] LABS: Prothrombin Time 22.4 Seconds (9.4-12.1)
[2019-04-16] MEDS: Ascorbic Acid 500 MG TABLET PO SCH ×2 (08:01→16:11)
[2019-04-16] MEDS: Multivit/Ca/Min/Fe/FA 1 TAB TABLET PO SCH (08:01)
[2019-04-16] MEDS: Furosemide 20 MG TABLET PO SCH ×2 (08:02→16:11)
[2019-04-16] MEDS: FISH OIL PO SCH (08:02)
[2019-04-16] MEDS: Aspirin Enteric Coated 81 MG Tablet PO SCH (08:02)
[2019-04-16] MEDS: rifAMPin 150 MG CAPSULE PO SCH ×3 (08:02→16:11)
[2019-04-16] MEDS: OMEGA PO SCH (08:02)
[2019-04-16] MEDS: Verapamil ER (24 HR) 120 MG TABLET.ER PO SCH (08:02)
[2019-04-16] MEDS: FATTY ACIDS PO SCH (08:02)
[2019-04-16] MEDS: Isosorbide MONOnitrate (24 HR) 30 MG TAB.ER.24H PO SCH (08:02)
[2019-04-16] MEDS: *HR* OxyCODONE Immed Rel 5 MG TABLET PO PRN ×2 (10:47→22:36)
[2019-04-16] MEDS ORDERED: *HR* Warfarin 5 MG TABLET PO ONE (18:00)
[2019-04-16] MEDS: Melatonin 3 MG TABLET PO SCH (21:25)
[2019-04-16] MEDS: traZODone 50 MG TABLET PO SCH (21:26)
[2019-04-17] MEDS: rifAMPin 150 MG CAPSULE PO SCH ×3 (09:49→17:04)
[2019-04-17] MEDS: Verapamil ER (24 HR) 120 MG TABLET.ER PO SCH (09:49)
[2019-04-17] MEDS: FATTY ACIDS PO SCH (09:50)
[2019-04-17] MEDS: Isosorbide MONOnitrate (24 HR) 30 MG TAB.ER.24H PO SCH (09:50)
[2019-04-17] MEDS: Multivit/Ca/Min/Fe/FA 1 TAB TABLET PO SCH (09:50)
[2019-04-17] MEDS: FISH OIL PO SCH (09:50)
[2019-04-17] MEDS: OMEGA PO SCH (09:50)
[2019-04-17] MEDS: Furosemide 20 MG TABLET PO SCH ×2 (09:50→17:04)
[2019-04-17] MEDS: Ascorbic Acid 500 MG TABLET PO SCH ×2 (09:51→17:04)
[2019-04-17] MEDS: *HR* OxyCODONE Immed Rel 5 MG TABLET PO PRN ×2 (09:51→20:50)
[2019-04-17] MEDS: Aspirin Enteric Coated 81 MG Tablet PO SCH (09:51)
[2019-04-17 11:19] LABS: Prothrombin Time 23.3 Seconds (9.4-12.1)
[2019-04-17 11:27] LABS: Basophils # 0.1 K/mcL (0.0-0.2); Eosinophils # 0.3 K/mcL (0.0-0.6); Eosinophils % 3.6 %; Hematocrit 32.7 % (37.5-50.1); Immature Granulocytes % 0.5 % (0-4); Lymphocytes # 1.6 K/mcL (0.6-4.6); Lymphocytes % 18.6 %; Mean Corpuscular HGB Conc 30.6 g/dL (31.6-35.5); Mean Corpuscular Hemoglobin 26.4 pg (28.0-33.3); Mean Corpuscular Volume 86.3 fL (83.0-100.0); Mean Platelet Volume 9.8 fL (9.4-12.4); Monocytes # 0.6 K/mcL (0.0-1.3); Monocytes % 6.8 %; Neutrophils # 5.8 K/mcL (1.6-8.9); Platelet Count 372 K/mcL (140-400); Red Blood Count 3.79 M/mcL (4.19-5.50); Red Cell Distribution Width 17.4 % (11.5-14.5); Segmented Neutrophils % 69.5 %; White Blood Count 8.3 K/mcL (4.3-11.1)
[2019-04-17 11:28] LABS: BUN/Creatinine Ratio 17 (6-26); Blood Urea Nitrogen 22 mg/dL (8-23); Calcium 9.1 mg/dL (8.6-10.3); Carbon Dioxide 26 mEq/L (23-29); Chloride 95 mEq/L (98-107); Glucose 114 mg/dL (70-105); Magnesium 2.2 mg/dL (1.6-2.6); Osmolality,Calculated 272 (280-300); Potassium 3.9 mEq/L (3.5-5.1); Sodium 129 mEq/L (136-145); eGFR For African Americans > 60 (> 60); eGFR For Non-African Americans 52 (> 60)
[2019-04-17] MEDS ORDERED: *HR* Warfarin 3 MG TABLET PO ONE (18:00)
[2019-04-17] MEDS: traZODone 50 MG TABLET PO SCH (20:50)
[2019-04-17] MEDS: Melatonin 3 MG TABLET PO SCH (20:50)
[2019-04-18 05:50] LABS: Prothrombin Time 22.9 Seconds (9.4-12.1)
[2019-04-18 06:01] LABS: eGFR For African Americans > 60 (> 60); eGFR For Non-African Americans 57 (> 60)
[2019-04-18] MEDS: Aspirin Enteric Coated 81 MG Tablet PO SCH (09:34)
[2019-04-18] MEDS: rifAMPin 150 MG CAPSULE PO SCH ×4 (09:34→18:20)
[2019-04-18] MEDS: Verapamil ER (24 HR) 120 MG TABLET.ER PO SCH (09:35)
[2019-04-18] MEDS: Isosorbide MONOnitrate (24 HR) 30 MG TAB.ER.24H PO SCH (09:35)
[2019-04-18] MEDS: Furosemide 20 MG TABLET PO SCH ×2 (09:35→17:45)
[2019-04-18] MEDS: Ascorbic Acid 500 MG TABLET PO SCH ×2 (09:35→17:45)
[2019-04-18] MEDS: Multivit/Ca/Min/Fe/FA 1 TAB TABLET PO SCH (09:35)
[2019-04-18] MEDS: *HR* OxyCODONE Immed Rel 5 MG TABLET PO PRN ×2 (09:36→13:45)
[2019-04-18] MEDS: FISH OIL PO SCH (09:40)
[2019-04-18] MEDS: OMEGA PO SCH (09:40)
[2019-04-18] MEDS: FATTY ACIDS PO SCH (09:40)
[2019-04-18] MEDS ORDERED: *HR* Warfarin 3 MG TABLET PO ONE (18:00)
[2019-04-18] MEDS: Melatonin 3 MG TABLET PO SCH (21:23)
[2019-04-18] MEDS: traZODone 50 MG TABLET PO SCH (21:24)
[2019-04-19 05:59] LABS: INR 1.8; Prothrombin Time 20.8 Seconds (9.4-12.1)
[2019-04-19 06:09] LABS: eGFR For African Americans > 60 (> 60); eGFR For Non-African Americans 55 (> 60)
[2019-04-19] MEDS: Aspirin Enteric Coated 81 MG Tablet PO SCH (07:54)
[2019-04-19] MEDS: Verapamil ER (24 HR) 120 MG TABLET.ER PO SCH (07:55)
[2019-04-19] MEDS: Multivit/Ca/Min/Fe/FA 1 TAB TABLET PO SCH (07:55)
[2019-04-19] MEDS: rifAMPin 150 MG CAPSULE PO SCH ×3 (07:55→16:56)
[2019-04-19] MEDS: Ascorbic Acid 500 MG TABLET PO SCH ×2 (07:55→16:56)
[2019-04-19] MEDS: Furosemide 20 MG TABLET PO SCH ×2 (07:55→16:56)
[2019-04-19] MEDS: Isosorbide MONOnitrate (24 HR) 30 MG TAB.ER.24H PO SCH (07:55)
[2019-04-19] MEDS: FATTY ACIDS PO SCH (07:57)
[2019-04-19] MEDS: OMEGA PO SCH (07:57)
[2019-04-19] MEDS: FISH OIL PO SCH (07:57)
[2019-04-19] MEDS: *HR* OxyCODONE Immed Rel 5 MG TABLET PO PRN ×3 (08:09→23:11)
[2019-04-19] MEDS ORDERED: *HR* Warfarin 3 MG TABLET PO ONE (18:00)
[2019-04-19] MEDS: Melatonin 3 MG TABLET PO SCH (23:10)
[2019-04-19] MEDS: traZODone 50 MG TABLET PO SCH (23:11)
[2019-04-20 05:30] LABS: eGFR For African Americans > 60 (> 60); eGFR For Non-African Americans 60 (> 60)
[2019-04-20] MEDS: Verapamil ER (24 HR) 120 MG TABLET.ER PO SCH (08:14)
[2019-04-20] MEDS: Furosemide 20 MG TABLET PO SCH ×2 (08:15→17:47)
[2019-04-20] MEDS: rifAMPin 150 MG CAPSULE PO SCH ×3 (08:15→17:47)
[2019-04-20] MEDS: Multivit/Ca/Min/Fe/FA 1 TAB TABLET PO SCH (08:15)
[2019-04-20] MEDS: Aspirin Enteric Coated 81 MG Tablet PO SCH (08:15)
[2019-04-20] MEDS: FISH OIL PO SCH (08:16)
[2019-04-20] MEDS: FATTY ACIDS PO SCH (08:16)
[2019-04-20] MEDS: Isosorbide MONOnitrate (24 HR) 30 MG TAB.ER.24H PO SCH (08:16)
[2019-04-20] MEDS: Ascorbic Acid 500 MG TABLET PO SCH ×2 (08:16→17:47)
[2019-04-20] MEDS: OMEGA PO SCH (08:16)
[2019-04-20] MEDS ORDERED: *HR* Warfarin 3 MG TABLET PO ONE (18:00)
[2019-04-20] MEDS ORDERED: *HR* Warfarin 2 MG TABLET PO ONE (18:00)
[2019-04-20] MEDS: traZODone 50 MG TABLET PO SCH (20:52)
[2019-04-20] MEDS: Melatonin 3 MG TABLET PO SCH (20:52)
[2019-04-20] MEDS: *HR* OxyCODONE Immed Rel 5 MG TABLET PO PRN (20:52)
[2019-04-21 05:30] LABS: INR 1.6; Prothrombin Time 18.6 Seconds (9.4-12.1)
[2019-04-21] MEDS: Aspirin Enteric Coated 81 MG Tablet PO SCH (07:42)
[2019-04-21] MEDS: Multivit/Ca/Min/Fe/FA 1 TAB TABLET PO SCH (07:42)
[2019-04-21] MEDS: Furosemide 20 MG TABLET PO SCH ×2 (07:42→17:17)
[2019-04-21] MEDS: rifAMPin 150 MG CAPSULE PO SCH ×3 (07:43→17:17)
[2019-04-21] MEDS: Verapamil ER (24 HR) 120 MG TABLET.ER PO SCH (07:43)
[2019-04-21] MEDS: Ascorbic Acid 500 MG TABLET PO SCH ×2 (07:43→17:17)
[2019-04-21] MEDS: Isosorbide MONOnitrate (24 HR) 30 MG TAB.ER.24H PO SCH (07:44)
[2019-04-21] MEDS: OMEGA PO SCH (07:44)
[2019-04-21] MEDS: *HR* OxyCODONE Immed Rel 5 MG TABLET PO PRN ×3 (07:44→23:42)
[2019-04-21] MEDS: FISH OIL PO SCH (07:44)
[2019-04-21] MEDS: FATTY ACIDS PO SCH (07:44)
[2019-04-21] MEDS ORDERED: *HR* Warfarin 5 MG TABLET PO ONE ×2 (09:00→18:00)
[2019-04-21] MEDS: Melatonin 3 MG TABLET PO SCH (23:42)
[2019-04-21] MEDS: traZODone 50 MG TABLET PO SCH (23:42)
[2019-04-22 05:34] LABS: Basophils # 0.1 K/mcL (0.0-0.2); Basophils % 0.9 %; Eosinophils # 0.4 K/mcL (0.0-0.6); Eosinophils % 5.1 %; Hematocrit 31.9 % (37.5-50.1); Hemoglobin 9.9 g/dL (12.9-16.9); Immature Granulocytes % 0.4 % (0-4); Lymphocytes # 1.4 K/mcL (0.6-4.6); Lymphocytes % 18.5 %; Mean Corpuscular Hemoglobin 26.7 pg (28.0-33.3); Mean Platelet Volume 9.8 fL (9.4-12.4); Monocytes # 0.5 K/mcL (0.0-1.3); Monocytes % 6.9 %; Neutrophils # 5.2 K/mcL (1.6-8.9); Platelet Count 340 K/mcL (140-400); Red Blood Count 3.71 M/mcL (4.19-5.50); Red Cell Distribution Width 17.5 % (11.5-14.5); Segmented Neutrophils % 68.2 %; White Blood Count 7.6 K/mcL (4.3-11.1)
[2019-04-22 05:35] LABS: INR 1.7; Prothrombin Time 19.1 Seconds (9.4-12.1)
[2019-04-22 05:46] LABS: BUN/Creatinine Ratio 23 (6-26); Blood Urea Nitrogen 26 mg/dL (8-23); Calcium 8.9 mg/dL (8.6-10.3); Carbon Dioxide 23 mEq/L (23-29); Chloride 104 mEq/L (98-107); Glucose 99 mg/dL (70-105); Osmolality,Calculated 281 (280-300); Potassium 3.7 mEq/L (3.5-5.1); Sodium 133 mEq/L (136-145); eGFR For African Americans > 60 (> 60); eGFR For Non-African Americans > 60 (> 60)
[2019-04-22 05:48] LABS: Albumin 3.3 g/dL (3.5-5.7); Albumin/Globulin Ratio 1.1 (1.1-2.2); Bilirubin,Direct 0.1 mg/dL (0.0-0.2); Bilirubin,Indirect 0.2 mg/dL (0.0-1.0); Bilirubin,Total 0.3 mg/dL (0.3-1.0); Total Protein 6.3 g/dL (6.4-8.9)
[2019-04-22] MEDS: Ascorbic Acid 500 MG TABLET PO SCH ×2 (08:56→18:58)
[2019-04-22] MEDS: Aspirin Enteric Coated 81 MG Tablet PO SCH (08:56)
[2019-04-22] MEDS: Multivit/Ca/Min/Fe/FA 1 TAB TABLET PO SCH (08:56)
[2019-04-22] MEDS: rifAMPin 150 MG CAPSULE PO SCH ×3 (08:57→18:58)
[2019-04-22] MEDS: Furosemide 20 MG TABLET PO SCH ×2 (08:57→18:58)
[2019-04-22] MEDS: Verapamil ER (24 HR) 120 MG TABLET.ER PO SCH (08:57)
[2019-04-22] MEDS: FATTY ACIDS PO SCH (09:02)
[2019-04-22] MEDS: Isosorbide MONOnitrate (24 HR) 30 MG TAB.ER.24H PO SCH (09:02)
[2019-04-22] MEDS: FISH OIL PO SCH (09:02)
[2019-04-22] MEDS: OMEGA PO SCH (09:02)
[2019-04-22 10:01] LABS: C-Reactive Protein 37 mg/L (Less than 10)
[2019-04-22] MEDS: *HR* OxyCODONE Immed Rel 5 MG TABLET PO PRN ×2 (10:41→21:34)
[2019-04-22] MEDS ORDERED: *HR* Warfarin 4 MG TABLET PO ONE (18:00)
[2019-04-22] MEDS: Melatonin 3 MG TABLET PO SCH (21:33)
[2019-04-22] MEDS: traZODone 50 MG TABLET PO SCH (21:34)
[2019-04-23 05:48] LABS: INR 1.5; Prothrombin Time 17.4 Seconds (9.4-12.1)
[2019-04-23 05:59] LABS: eGFR For African Americans > 60 (> 60); eGFR For Non-African Americans > 60 (> 60)
[2019-04-23] MEDS: Aspirin Enteric Coated 81 MG Tablet PO SCH (08:00)
[2019-04-23] MEDS: Ascorbic Acid 500 MG TABLET PO SCH ×2 (08:00→17:13)
[2019-04-23] MEDS: rifAMPin 150 MG CAPSULE PO SCH ×3 (08:00→17:13)
[2019-04-23] MEDS: Multivit/Ca/Min/Fe/FA 1 TAB TABLET PO SCH (08:00)
[2019-04-23] MEDS: Isosorbide MONOnitrate (24 HR) 30 MG TAB.ER.24H PO SCH (08:00)
[2019-04-23] MEDS: Furosemide 20 MG TABLET PO SCH ×2 (08:01→17:13)
[2019-04-23] MEDS: Verapamil ER (24 HR) 120 MG TABLET.ER PO SCH (08:01)
[2019-04-23] MEDS: *HR* OxyCODONE Immed Rel 5 MG TABLET PO PRN ×2 (08:07→20:17)
[2019-04-23] MEDS: FISH OIL PO SCH (08:12)
[2019-04-23] MEDS: FATTY ACIDS PO SCH (08:12)
[2019-04-23] MEDS: OMEGA PO SCH (08:12)
[2019-04-23] MEDS ORDERED: *HR* Warfarin 7.5 MG TABLET PO ONE ×2 (08:31→18:00)
[2019-04-23] MEDS: Melatonin 3 MG TABLET PO SCH (20:16)
[2019-04-23] MEDS: traZODone 50 MG TABLET PO SCH (20:17)
[2019-04-24] MEDS: Aspirin Enteric Coated 81 MG Tablet PO SCH (05:42)
[2019-04-24] MEDS: Verapamil ER (24 HR) 120 MG TABLET.ER PO SCH (05:42)
[2019-04-24] MEDS: Isosorbide MONOnitrate (24 HR) 30 MG TAB.ER.24H PO SCH (05:44)
[2019-04-24] MEDS: Furosemide 20 MG TABLET PO SCH ×2 (05:44→17:40)
[2019-04-24] MEDS: rifAMPin 150 MG CAPSULE PO SCH ×3 (05:47→17:44)
[2019-04-24] MEDS: FISH OIL PO SCH (05:49)
[2019-04-24] MEDS: OMEGA PO SCH (05:49)
[2019-04-24] MEDS: FATTY ACIDS PO SCH (05:49)
[2019-04-24 07:40] LABS: INR 1.7; Prothrombin Time 19.7 Seconds (9.4-12.1)
[2019-04-24] MEDS: *HR* OxyCODONE Immed Rel 5 MG TABLET PO PRN ×2 (12:52→20:56)
[2019-04-24] MEDS: Ascorbic Acid 500 MG TABLET PO SCH ×2 (13:26→17:43)
[2019-04-24] MEDS: Multivit/Ca/Min/Fe/FA 1 TAB TABLET PO SCH (13:27)
[2019-04-24] MEDS ORDERED: Aminoglycoside Consult 1 EACH MC ONE (14:59)
[2019-04-24] MEDS ORDERED: *HR* Warfarin 5 MG TABLET PO ONE (18:00)
[2019-04-24] MEDS: Melatonin 3 MG TABLET PO SCH (20:55)
[2019-04-24] MEDS: traZODone 50 MG TABLET PO SCH (20:56)
[2019-04-25 05:27] LABS: INR 1.8; Prothrombin Time 20.4 Seconds (9.4-12.1)
[2019-04-25 05:39] LABS: eGFR For African Americans > 60 (> 60); eGFR For Non-African Americans > 60 (> 60)
[2019-04-25 08:22] VITALS: BP 105/61
[2019-04-25] MEDS: Aspirin Enteric Coated 81 MG Tablet PO SCH (10:27)
[2019-04-25] MEDS: *HR* OxyCODONE Immed Rel 5 MG TABLET PO PRN (10:28)
[2019-04-25] MEDS: Verapamil ER (24 HR) 120 MG TABLET.ER PO SCH (10:28)
[2019-04-25] MEDS: rifAMPin 150 MG CAPSULE PO SCH ×2 (10:29→12:51)
[2019-04-25] MEDS: Multivit/Ca/Min/Fe/FA 1 TAB TABLET PO SCH (10:29)
[2019-04-25] MEDS: Furosemide 20 MG TABLET PO SCH (10:30)
[2019-04-25] MEDS: Ascorbic Acid 500 MG TABLET PO SCH (10:30)
[2019-04-25] MEDS: Isosorbide MONOnitrate (24 HR) 30 MG TAB.ER.24H PO SCH (10:31)
[2019-04-25] MEDS: FATTY ACIDS PO SCH (10:33)
[2019-04-25] MEDS: FISH OIL PO SCH (10:33)
[2019-04-25] MEDS: OMEGA PO SCH (10:33)
[2019-04-25] MEDS ORDERED: *HR* Warfarin 4 MG TABLET PO ONE (18:00)
== END 2019-04-25 15:00 | disposition home health service (06) | DRG 945 ==
LOC: INPGRE 13:14
PROVIDERS: ADMIT Family Medicine; ATTEND Family Medicine

== ENCOUNTER 2021-08-29 13:46 | Inpatient (IN) ==
[2021-08-29] MEDS ORDERED: *HR* OxyCODONE/APAP 5/325 TABLET PO PRN (14:08)
[2021-08-29] MEDS ORDERED: *HR* Warfarin 10 MG TABLET PO SCH (14:15)
[2021-08-29] MEDS: Furosemide 20 MG TABLET PO SCH (17:17)
[2021-08-29] MEDS: Ascorbic Acid 500 MG TABLET PO SCH (17:17)
[2021-08-29] MEDS ORDERED: *HR* Warfarin 4 MG TABLET PO ONE (18:00)
[2021-08-29] MEDS ORDERED: Warfarin perPT PO PRN (18:00)
[2021-08-29] MEDS: *HR* OxyCODONE/APAP 5/325 TABLET PO PRN (21:58)
[2021-08-29] MEDS: Doxycycline 100 MG CAPSULE PO SCH (21:58)
[2021-08-30 04:56] LABS: Basophils % 0.4 %; Eosinophils # 0.4 K/mcL (0.0-0.6); Eosinophils % 3.9 %; Hemoglobin 8.2 g/dL (12.9-16.9); Immature Granulocytes % 0.6 % (0-4); Lymphocytes # 1.1 K/mcL (0.6-4.6); Lymphocytes % 11.2 %; Mean Corpuscular HGB Conc 31.5 g/dL (31.6-35.5); Mean Corpuscular Hemoglobin 27.8 pg (28.0-33.3); Mean Corpuscular Volume 88.1 fL (83.0-100.0); Mean Platelet Volume 10.5 fL (9.4-12.4); Monocytes # 0.7 K/mcL (0.0-1.3); Monocytes % 6.6 %; Neutrophils # 7.7 K/mcL (1.6-8.9); Platelet Count 271 K/mcL (140-400); Red Blood Count 2.95 M/mcL (4.19-5.50); Red Cell Distribution Width 16.6 % (11.5-14.5); Segmented Neutrophils % 77.3 %
[2021-08-30 05:00] LABS: INR 1.3; Prothrombin Time 14.3 Seconds (9.4-12.1)
[2021-08-30 05:32] LABS: Albumin 3.1 g/dL (3.5-5.7); Albumin/Globulin Ratio 1.1 (1.1-2.2); Bilirubin,Total 0.5 mg/dL (0.3-1.0); Calcium 8.7 mg/dL (8.6-10.3); Globulin 2.9 g/dL (2.4-3.5); Potassium 3.7 mEq/L (3.5-5.1)
[2021-08-30] MEDS: Furosemide 20 MG TABLET PO SCH (08:09)
[2021-08-30] MEDS: Isosorbide MONOnitrate (24 HR) 30 MG TAB.ER.24H PO SCH (08:09)
[2021-08-30] MEDS: Finasteride 5 MG TABLET PO SCH (08:09)
[2021-08-30] MEDS: *HR* OxyCODONE/APAP 5/325 TABLET PO PRN ×2 (08:09→23:51)
[2021-08-30] MEDS: Ascorbic Acid 500 MG TABLET PO SCH ×2 (08:10→17:07)
[2021-08-30] MEDS: Multivit/Ca/Min/Fe/FA 1 TAB TABLET PO SCH (08:10)
[2021-08-30] MEDS: Doxycycline 100 MG CAPSULE PO SCH ×2 (08:10→21:00)
[2021-08-30] MEDS: Cholecalciferol (D-3) 1,000 UNIT (25MCG) TABLET PO SCH (08:10)
[2021-08-30] MEDS: TAFAMIDIS 61 MG PO SCH (08:13)
[2021-08-30] MEDS ORDERED: *HR* Warfarin 3 MG TABLET PO SCH (14:09)
[2021-08-30] MEDS ORDERED: *HR* Warfarin 5 MG TABLET PO ONE (18:00)
[2021-08-31 05:03] LABS: Hematocrit 26.1 % (37.5-50.1); Hemoglobin 8.1 g/dL (12.9-16.9); Mean Corpuscular Hemoglobin 27.6 pg (28.0-33.3); Mean Corpuscular Volume 89.1 fL (83.0-100.0); Mean Platelet Volume 10.6 fL (9.4-12.4); Platelet Count 297 K/mcL (140-400); Red Blood Count 2.93 M/mcL (4.19-5.50); Red Cell Distribution Width 16.4 % (11.5-14.5); White Blood Count 10.8 K/mcL (4.3-11.1)
[2021-08-31 05:06] LABS: INR 1.3; Prothrombin Time 14.8 Seconds (9.4-12.1)
[2021-08-31 05:17] LABS: Calcium 8.9 mg/dL (8.6-10.3); Magnesium 2.2 mg/dL (1.6-2.6); Potassium 3.9 mEq/L (3.5-5.1)
[2021-08-31] MEDS: Cholecalciferol (D-3) 1,000 UNIT (25MCG) TABLET PO SCH (08:29)
[2021-08-31] MEDS: Isosorbide MONOnitrate (24 HR) 30 MG TAB.ER.24H PO SCH (08:29)
[2021-08-31] MEDS: Aspirin 81 MG TAB.CHEW PO SCH (08:30)
[2021-08-31] MEDS: Multivit/Ca/Min/Fe/FA 1 TAB TABLET PO SCH (08:30)
[2021-08-31] MEDS: Doxycycline 100 MG CAPSULE PO SCH ×2 (08:30→20:43)
[2021-08-31] MEDS: Ascorbic Acid 500 MG TABLET PO SCH ×2 (08:30→17:19)
[2021-08-31] MEDS: Finasteride 5 MG TABLET PO SCH (08:30)
[2021-08-31] MEDS: TAFAMIDIS 61 MG PO SCH ×2 (08:31→21:22)
[2021-08-31] MEDS: *HR* OxyCODONE/APAP 5/325 TABLET PO PRN (11:01)
[2021-08-31] MEDS: Furosemide 20 MG TABLET PO SCH (17:19)
[2021-08-31] MEDS ORDERED: *HR* Warfarin 5 MG TABLET PO ONE (18:00)
[2021-09-01 06:40] LABS: Hematocrit 28.6 % (37.5-50.1); Hemoglobin 8.8 g/dL (12.9-16.9); Mean Corpuscular HGB Conc 30.8 g/dL (31.6-35.5); Mean Corpuscular Hemoglobin 27.3 pg (28.0-33.3); Mean Corpuscular Volume 88.8 fL (83.0-100.0); Mean Platelet Volume 10.4 fL (9.4-12.4); Platelet Count 345 K/mcL (140-400); Red Blood Count 3.22 M/mcL (4.19-5.50); Red Cell Distribution Width 16.5 % (11.5-14.5); White Blood Count 11.7 K/mcL (4.3-11.1)
[2021-09-01 06:44] LABS: INR 1.4; Prothrombin Time 15.1 Seconds (9.4-12.1)
[2021-09-01 06:52] LABS: Calcium 9.2 mg/dL (8.6-10.3); Magnesium 2.3 mg/dL (1.6-2.6); Potassium 3.9 mEq/L (3.5-5.1)
[2021-09-01] MEDS: Aspirin 81 MG TAB.CHEW PO SCH (07:50)
[2021-09-01] MEDS: *HR* OxyCODONE/APAP 5/325 TABLET PO PRN (07:51)
[2021-09-01] MEDS: Multivit/Ca/Min/Fe/FA 1 TAB TABLET PO SCH (07:51)
[2021-09-01] MEDS: Cholecalciferol (D-3) 1,000 UNIT (25MCG) TABLET PO SCH (07:52)
[2021-09-01] MEDS: Ascorbic Acid 500 MG TABLET PO SCH ×2 (07:52→17:14)
[2021-09-01] MEDS: Finasteride 5 MG TABLET PO SCH (07:53)
[2021-09-01] MEDS: Furosemide 20 MG TABLET PO SCH ×2 (07:53→17:14)
[2021-09-01] MEDS: Isosorbide MONOnitrate (24 HR) 30 MG TAB.ER.24H PO SCH (07:53)
[2021-09-01] MEDS: Doxycycline 100 MG CAPSULE PO SCH ×2 (07:53→19:47)
[2021-09-01] MEDS ORDERED: *HR* Warfarin 5 MG TABLET PO ONE (18:00)
[2021-09-01] MEDS: TAFAMIDIS 61 MG PO SCH (19:48)
[2021-09-02 05:08] LABS: INR 1.4; Prothrombin Time 15.7 Seconds (9.4-12.1)
[2021-09-02] MEDS: Multivit/Ca/Min/Fe/FA 1 TAB TABLET PO SCH (07:58)
[2021-09-02] MEDS: Aspirin 81 MG TAB.CHEW PO SCH (07:59)
[2021-09-02] MEDS: Furosemide 20 MG TABLET PO SCH ×2 (07:59→15:27)
[2021-09-02] MEDS: Isosorbide MONOnitrate (24 HR) 30 MG TAB.ER.24H PO SCH (07:59)
[2021-09-02] MEDS: Doxycycline 100 MG CAPSULE PO SCH ×2 (07:59→23:40)
[2021-09-02] MEDS: Finasteride 5 MG TABLET PO SCH (07:59)
[2021-09-02] MEDS: Ascorbic Acid 500 MG TABLET PO SCH (07:59)
[2021-09-02] MEDS: *HR* OxyCODONE/APAP 5/325 TABLET PO PRN (07:59)
[2021-09-02] MEDS: Cholecalciferol (D-3) 1,000 UNIT (25MCG) TABLET PO SCH (07:59)
[2021-09-02] MEDS ORDERED: *HR* Warfarin 7.5 MG TABLET PO ONE (18:00)
[2021-09-02] MEDS: TAFAMIDIS 61 MG PO SCH (20:40)
[2021-09-03 04:42] LABS: INR 1.5; Prothrombin Time 16.5 Seconds (9.4-12.1)
[2021-09-03] MEDS: Aspirin 81 MG TAB.CHEW PO SCH (08:25)
[2021-09-03] MEDS: Furosemide 20 MG TABLET PO SCH ×2 (08:25→17:23)
[2021-09-03] MEDS: Doxycycline 100 MG CAPSULE PO SCH ×2 (08:26→20:38)
[2021-09-03] MEDS: Cholecalciferol (D-3) 1,000 UNIT (25MCG) TABLET PO SCH (08:27)
[2021-09-03] MEDS: Finasteride 5 MG TABLET PO SCH (08:27)
[2021-09-03] MEDS: Isosorbide MONOnitrate (24 HR) 30 MG TAB.ER.24H PO SCH (08:29)
[2021-09-03] MEDS ORDERED: *HR* Warfarin 7.5 MG TABLET PO ONE (18:00)
[2021-09-03] MEDS: TAFAMIDIS 61 MG PO SCH (20:38)
[2021-09-04 04:49] LABS: Hematocrit 27.3 % (37.5-50.1); Hemoglobin 8.4 g/dL (12.9-16.9); Mean Corpuscular HGB Conc 30.8 g/dL (31.6-35.5); Mean Corpuscular Hemoglobin 27.3 pg (28.0-33.3); Mean Corpuscular Volume 88.6 fL (83.0-100.0); Mean Platelet Volume 9.9 fL (9.4-12.4); Platelet Count 352 K/mcL (140-400); Red Blood Count 3.08 M/mcL (4.19-5.50); Red Cell Distribution Width 17.1 % (11.5-14.5); White Blood Count 11.3 K/mcL (4.3-11.1)
[2021-09-04 04:52] LABS: INR 1.6; Prothrombin Time 18.2 Seconds (9.4-12.1)
[2021-09-04 05:10] LABS: Albumin 3.1 g/dL (3.5-5.7); Albumin/Globulin Ratio 1.1 (1.1-2.2); Bilirubin,Total 0.4 mg/dL (0.3-1.0); Globulin 2.9 g/dL (2.4-3.5); Potassium 3.7 mEq/L (3.5-5.1)
[2021-09-04] MEDS: Cholecalciferol (D-3) 1,000 UNIT (25MCG) TABLET PO SCH (08:10)
[2021-09-04] MEDS: Aspirin 81 MG TAB.CHEW PO SCH (08:10)
[2021-09-04] MEDS: Furosemide 20 MG TABLET PO SCH ×2 (08:10→17:03)
[2021-09-04] MEDS: Finasteride 5 MG TABLET PO SCH (08:10)
[2021-09-04] MEDS: Doxycycline 100 MG CAPSULE PO SCH ×2 (08:10→20:20)
[2021-09-04] MEDS: Isosorbide MONOnitrate (24 HR) 30 MG TAB.ER.24H PO SCH (08:10)
[2021-09-04] MEDS ORDERED: Acetaminophen 325 MG TABLET PO PRN (08:17)
[2021-09-04 17:27] VITALS: PULSE 76
[2021-09-04] MEDS ORDERED: *HR* Warfarin 7.5 MG TABLET PO ONE (18:00)
[2021-09-04] MEDS: TAFAMIDIS 61 MG PO SCH (20:21)
[2021-09-05 06:50] VITALS: BP 105/65; RESP 16; TEMP 98.2; O2SAT 92
[2021-09-05] MEDS: Aspirin 81 MG TAB.CHEW PO SCH (08:05)
[2021-09-05] MEDS: Doxycycline 100 MG CAPSULE PO SCH (08:05)
[2021-09-05] MEDS: *HR* OxyCODONE/APAP 5/325 TABLET PO PRN (08:05)
[2021-09-05] MEDS: Isosorbide MONOnitrate (24 HR) 30 MG TAB.ER.24H PO SCH (08:05)
[2021-09-05] MEDS: Cholecalciferol (D-3) 1,000 UNIT (25MCG) TABLET PO SCH (08:05)
[2021-09-05] MEDS: Furosemide 20 MG TABLET PO SCH ×2 (08:05→17:12)
[2021-09-05] MEDS: Finasteride 5 MG TABLET PO SCH (08:05)
[2021-09-05] MEDS ORDERED: *HR* Warfarin 5 MG TABLET PO ONE (18:00)
== END 2021-09-05 18:28 | disposition home health service (06) | DRG 554 ==
LOC: INPGRE 13:55
PROVIDERS: ADMIT Family Medicine; ATTEND Family Medicine